=== PATIENT | female | born 1980 | race African-American/Black ===

== ENCOUNTER 2021-04-29 21:05 | Emergency (ER) | payer OTHER ==
[~2021-04-29] VITALS: Ht 170.2 cm; Wt 98.9 kg
[2021-04-29 21:10] VITALS: BP 160/100
[2021-04-29] MEDS ORDERED: OFLO5SOL27 LEFT EAR (22:47)
[2021-04-29] MEDS ORDERED: ACET-8386 PO (22:47)
[2021-04-29] MEDS ORDERED: NAPR-54 PO (22:47)
[2021-04-29] MEDS ORDERED: AMOX500C25 PO (22:47)
[2021-04-29 22:55] VITALS: BP 160/100
--- NOTE | 2021-04-29 22:55 | NUR ---
Patient discharged with v/s stable. Written and verbal after care instructions given and explained. Patient alert, oriented and verbalized understanding of instructions. Ambulatory with steady gait. All questions addressed prior to discharge. ID band removed. Patient advised to follow up with PMD. Rx of NAPROSYN, HYDROCODONE, FLOXIN given. Patient educated on indication of medication including possible reaction and side effects. Opportunity to ask questions provided and answered.
== END 2021-04-29 22:55 | disposition home or self-care (01) ==
LOC: MED 21:05
DX: H60.502 Unspecified acute noninfective otitis externa, left ear (principal); Z98.890 Other specified postprocedural states; Z79.899 Other long term (current) drug therapy
CPT/HCPCS: 99283